=== PATIENT | female | born 1960 | race Caucasian/White ===

== ENCOUNTER 2018-09-05 09:42 | Day surgery (SDC) | payer OTHER ==
[2018-09-05] MEDS ORDERED: BUPIVACAINE 0.25% 30 ML SDV ONE (10:04)
[2018-09-05] MEDS ORDERED: ceFAZolin 2 GM/DEXTROSE 100 ML IV ONE (10:06)
[2018-09-05] MEDS ORDERED: LR 1,000 ML IV ONE (10:07)
[2018-09-05] MEDS ORDERED: CEFAZOLIN 2 GM/DEXTROSE/100 ML BAG IV ONE (10:10)
--- NOTE | 2018-09-05 10:30 | PDHPUP ---
History & Physical Update H&P update statement: This history and physical update is based on an assessment of the patient which was completed after admission or registration (within 24 hours), but prior to the surgery/procedure. H&P update: H&P reviewed & patient examined, no change in patient's condition since H&P completed
[2018-09-05] MEDS ORDERED: MIDAZOLAM 2 MG/2 ML VIAL IVP ONE (10:33)
[2018-09-05] MEDS ORDERED: MIDAZOLAM 2 MG/2 ML VIAL ONE (10:38)
--- NOTE | 2018-09-05 10:39 | PDANEPAE ---
ANE History of Present Illness Umbilical hernia repair ANE Past Medical History - Cardiovascular History Hx Hypertension: No Hx Arrhythmias: No Hx Chest Pain: No Hx Coronary Artery / Peripheral Vascular Disease: No Hx CHF / Valvular Disease: No Hx Palpitations: No - Pulmonary History Hx COPD: No Hx Asthma/Reactive Airway Disease: No Hx Recent Upper Respiratory Infection: No Hx Oxygen in Use at Home: No Hx Sleep Apnea: No Sleep Apnea Screening Result - Last Documented: Negative - Neurologic History Hx Cerebrovascular Accident: No Hx Seizures: No Hx Dementia: No - Endocrine History Hx Diabetes: No Hypothyroid: No Hyperthyroid: No Obesity: no - Renal History Hx Renal Disorders: No - Liver History Hx Hepatic Disorders: No - Neurological & Psychiatric Hx Hx Neurological and Psychiatric Disorders: No - Cancer History Hx Cancer: No - Congenital Disorder History Hx Congenital Disorders: No - GI History GERD: no Hx Gastrointestinal Disorders: Yes Gastrointestinal History Comment: GI VERY SENSITIVE GETS SICK FOR DAYS - Other Health History Other Health History: HANDS/FEET/KNEE CAP SWELLING OF UNDETERMINED ORIGIN RESIDUAL. DISCOLORATION - Chronic Pain History Chronic Pain: No - Surgical History Prior Surgeries: UMBILICAL HERNIA 05/2016. RT KNEE SCOPE ANE Review of Systems Review of systems is: negative Review of Systems: - Exercise capacity METS (RN): 6 METS ANE Patient History - Allergies Allergies/Adverse Reactions: ibuprofen Allergy (Verified 09/02/18 14:54) GI BLEEDING Sulfa (Sulfonamide Antibiotics) Allergy (Verified 09/02/18 14:53) Rash - Home Medications Home Medications: Herbals/Supplements -Info Only DAILY 09/02/18 [Last Taken 08/29/18 08:00] - NPO status NPO Status: no food or drink >8 hours NPO Since - Liquids (Date): 09/05/18 NPO Since - Liquids (Time): 08:00 NPO Since - Solids (Date): 09/04/18 NPO Since - Solids (Time): 20:00 - Anes Hx Anes Hx: post operative nausea - Smoking Hx Smoking Status: Never smoked Marijuana use: No - Alcohol Use Alcohol Use: Rarely - Family Anes Hx Family Anes Hx: none Family Hx Anesthesia Complications: NEG ANE Labs/Vital Signs - Vital Signs Blood Pressure: 107/78 Heart Rate: 69 Respiratory Rate: 16 O2 Sat (%): 96 Height: 167.64 cm Weight: 56.699 kg ANE Physical Exam - Airway Neck exam: FROM Mallampati Score: Class 1 Mouth exam: normal dental/mouth exam - Pulmonary Pulmonary: no respiratory distress - Cardiovascular Cardiovascular: regular rate and rhythym - ASA Status ASA Status: I ANE Anesthesia Plan Anesthesia Plan: MAC Total IV Anesthesia: Yes
[2018-09-05] MEDS ORDERED: PROPOFOL/EMULSION 500 MG/50 ML BOTTLE IV ONE (10:48)
[2018-09-05] MEDS ORDERED: fentaNYL 100 MCG/2 ML INJ ONE (10:48)
[2018-09-05] MEDS ORDERED: ONDANSETRON DISINTEGRATING 4 MG TAB PO PRN (11:37)
[2018-09-05] MEDS ORDERED: HYDROCODONE/APAP 5/325 TAB PO PRN (11:37)
--- NOTE | 2018-09-05 11:37 | POSTOPPROG ---
Post Op Note Date of Operation: 09/05/18 Surgeon: Gomez Pathak (, FACS) Anesthesiologist: Ana Us MD Anesthesia: Other (Specify) (MAC) Pre-op Diagnosis: epigastric hernia Post-op Diagnosis: recurrent umbilical hernia Procedure: repair recurrent umbilical hernia Findings: small recurrent umbilical hernia, non incarcerated Inf/Abcess present in the surg proc area at time of surgery?: No EBL: Minimal (3ml) Bowel Protocol: N/A Clean Closure Performed: N/A
--- NOTE | 2018-09-05 13:07 | GOP ---
[f rep st] OPERATIVE REPORT DATE OF OPERATION: 09/05/2018 SURGEON: Gomez Pathak MD, FACS ANESTHESIA: Monitored anesthesia care. ANESTHESIOLOGIST: Ana Us MD. PREOPERATIVE DIAGNOSIS: Epigastric hernia. POSTOPERATIVE DIAGNOSIS: Recurrent umbilical hernia. PROCEDURE PERFORMED: Repair of recurrent umbilical hernia. FINDINGS: Small umbilical hernial recurrence just above the prior suture line with incarceration of properitoneal fat. ESTIMATED BLOOD LOSS: 3 cc. DESCRIPTION OF PROCEDURE: After informed consent was obtained, the patient was brought to the operating room and placed under deep sedation. The abdomen was prepped and draped in the usual fashion. Before proceeding, a timeout and identification of the patient were performed. 0.25% Marcaine was used to infiltrate the supraumbilical skin, deep subcutaneous tissues, and fascia. A transverse incision was made above the umbilicus at the site of the palpable hernia, and dissection was carried out through the skin and subcutaneous tissues. The patient had had a prior infraumbilical approach for an umbilical hernia many years prior. As we dissected down to the fascia, we found the old braided sutures that had apparently pulled loose from the upper aspect of the repair resulting in a 5 to 6 mm defect above the prior repair. This was incarcerated with properitoneal fat. After this was mobilized, it was easily reduced into the preperitoneal space, and the fascial defect was repaired transversely with interrupted 0 Nurolon sutures. Upon completion, the repair was intact without undue tension. The umbilical skin was tacked back to the fascia with 3-0 Vicryl suture. Subcutaneous tissues were closed with 3-0 Vicryl suture. Skin was closed with 4 -0 Monocryl suture in a subcuticular fashion. Topical Dermabond was applied. The patient was returned extubated to the recovery room in satisfactory condition. Needle, sponge, and instrument counts were correct. COMPLICATIONS: None. /[id number]/MODL MTDD
[2018-09-05 13:14] VITALS: BP 95/67
--- NOTE | 2018-09-05 13:36 | POSTANESTH ---
Post Anesthetic Evaluation Cardiovascular Status: Normal, Stable Respiratory Status: Normal, Stable Level of Consciousness/Mental Status: Can Participate in Eval Pain Control: Adequate, Prn Tx Ordered Nausea/Vomiting Control: Adequate, Prn Tx Ordered Complications Possibly Related to Anesthesia: None Noted
== END 2018-09-05 12:45 | disposition home or self-care (01) ==
LOC: FSGY 09:42 → EDSEX 12:30 → FSGY 12:45
PROVIDERS: ATTEND Surgery
PROC: 0WQF0ZZ Repair Abdominal Wall, Open Approach (ICD-10-PCS; principal; 2018-09-05 11:00)
DX: K42.9 Umbilical hernia without obstruction or gangrene (principal)
CPT/HCPCS: J0690; J2250; J2704; J3010